=== PATIENT | male | born 1975 | race Caucasian/White ===

== ENCOUNTER 2016-09-07 07:45 | Emergency (ER) | payer OTHER ==
[~2016-09-07] VITALS: Ht 182.9 cm; Wt 108.9 kg
[2016-09-07 07:56] VITALS: BP 154/99
[2016-09-07] MEDS ORDERED: TETANUS-DIPTH-ACEL PERTUSSIS 0.5ML SYRG IM ONE (09:30)
== END 2016-09-07 09:55 | disposition home or self-care (01) ==
LOC: ER 07:45
DX: S61.411A Laceration without foreign body of right hand, initial encounter (principal); Z23 Encounter for immunization; X50.9XXA Other and unspecified overexertion or strenuous movements or postures, initial encounter; Y93.89 Activity, other specified; Y99.8 Other external cause status; Y92.89 Other specified places as the place of occurrence of the external cause
CPT/HCPCS: 12001; 73130; 90471; 90715